=== PATIENT | male | born 1940 | race Caucasian/White ===

== ENCOUNTER 2021-12-14 08:32 | Day surgery (SDC) | payer MEDICARE ==
[2021-12-14] MEDS ORDERED: Carvedilol 3.125 MG Tab PO STA (09:08)
[2021-12-14] MEDS ORDERED: Sodium Chloride 0.9% 1,000 ML IV SCH (09:15)
[2021-12-14] MEDS ORDERED: fentaNYL 100 MCG/2 ML SDV ONE (09:40)
[2021-12-14] MEDS ORDERED: Midazolam 1 MG/ML 2 ML SDV ONE (09:40)
[2021-12-14] MEDS ORDERED: Propofol 200 MG/20 ML SDV ONE (09:40)
== END 2021-12-14 11:57 | disposition home or self-care (01) ==
LOC: JP.SDS 08:32
PROVIDERS: ATTEND Surgery
DX: D12.2 Benign neoplasm of ascending colon (principal); K56.2 Volvulus; K57.30 Diverticulosis of large intestine without perforation or abscess without bleeding; I10 Essential (primary) hypertension; I25.10 Atherosclerotic heart disease of native coronary artery without angina pectoris; E11.9 Type 2 diabetes mellitus without complications; Z87.891 Personal history of nicotine dependence; Z01.812 Encounter for preprocedural laboratory examination; Z20.822 Contact with and (suspected) exposure to COVID-19
CPT/HCPCS: 88305; A9270-GY; J2250; J2704; J3010; J7030; U0002

== ENCOUNTER 2022-12-06 06:36 | Day surgery (SDC) | payer MEDICARE ==
[2022-12-06] MEDS ORDERED: Propofol 200 MG/20 ML SDV ONE (07:19)
[2022-12-06] MEDS ORDERED: fentaNYL 50 MCG/ML SDV ONE (07:19)
[2022-12-06] MEDS ORDERED: Sodium Chloride 0.9% 1,000 ML IV SCH (08:00)
== END 2022-12-06 10:20 | disposition home or self-care (01) ==
LOC: JP.SDS 06:36
PROVIDERS: ATTEND Surgery
DX: Z12.11 Encounter for screening for malignant neoplasm of colon (principal); K57.30 Diverticulosis of large intestine without perforation or abscess without bleeding; I10 Essential (primary) hypertension; I25.10 Atherosclerotic heart disease of native coronary artery without angina pectoris; K21.9 Gastro-esophageal reflux disease without esophagitis; G20 Parkinson's disease; E11.9 Type 2 diabetes mellitus without complications; E66.9 Obesity, unspecified; Z68.28 Body mass index [BMI] 28.0-28.9, adult; Z86.010 Personal history of colon polyps; Z95.1 Presence of aortocoronary bypass graft
CPT/HCPCS: G0105; J2704; J3010; J7030